=== PATIENT | male | born 1995 | race Caucasian/White ===

== ENCOUNTER 2016-11-18 20:02 | Emergency (ER) | payer BC ==
[~2016-11-18] VITALS: Ht 182.9 cm; Wt 74.4 kg
[2016-11-18 22:33] LABS: ADD MIUA? NO; BILIRUBIN NEGATIVE; BLOOD NEGATIVE; COLOR YELLOW ((YELLOW)); GLUCOSE (STRIP) NEGATIVE; KETONES NEGATIVE; LEUKOCYTES NEGATIVE; NITRITE NEGATIVE; PROTEIN (STRIP) NEGATIVE; SPECIFIC GRAVITY 1.019 (1.000-1.030); UCUL ADDED? NO; UROBILINOGEN 0.2 MG/DL (0.2-1.0)
[2016-11-18] MEDS ORDERED: MOTRIN800 MG PO (23:13)
[2016-11-18] MEDS ORDERED: MOTRIN600 MG PO (23:18)
[2016-11-18 23:24] VITALS: BP 126/82
== END 2016-11-18 23:24 | disposition home or self-care (01) ==
LOC: EME 20:02 → RME 20:02
DX: N50.3 Cyst of epididymis (principal); N50.812 Left testicular pain; R10.30 Lower abdominal pain, unspecified
CPT/HCPCS: 76870; 81003; 99281; 99283